=== PATIENT | male | born 1945 | race Caucasian/White ===

== ENCOUNTER → 2018-07-11 11:46 | Outpatient (CLI) | payer MEDICARE, SELFPAY | PROVIDERS: PCP Family Medicine; Visit Provider Family Medicine | DX: G47.30 Sleep apnea, unspecified (principal); I10 Essential (primary) hypertension; R06.83 Snoring | CPT/HCPCS: G0399 ==

== ENCOUNTER → 2018-07-22 10:45 | Outpatient (POV) | payer MEDICARE, SELFPAY | PROVIDERS: Visit Provider Dermatology | DX: Z00.00 Encounter for general adult medical examination without abnormal findings (principal) ==

== ENCOUNTER → 2020-01-29 08:22 | Outpatient (CLI) | payer MEDICARE, SELFPAY ==
[2020-01-29 14:24] LABS: Coronavirus 19 IgG Antibody Negative (Negative); Coronavirus 19 IgM Antibody Negative (Negative)
== END ==
PROVIDERS: Visit Provider Internal Medicine Gastroenterology
DX: Z01.818 Encounter for other preprocedural examination (principal); Z12.11 Encounter for screening for malignant neoplasm of colon
CPT/HCPCS: 36415; 86328

== ENCOUNTER 2020-02-01 11:00 | Day surgery (SDC) | payer MEDICARE, SELFPAY ==
[2020-02-01] VITALS (7 sets, daily range): BP systolic 86–145; BP diastolic 56–90; PULSE 63–75; RESP 16–18; TEMP 36.2–36.8; O2SAT 94–98; BMI 28.8
--- NOTE | 2020-02-01 12:49 | P.PN_ITS ---
[facility] Anesthesia Checklist - Structural Data Admitted From: Home Planned Operative Procedure/s: colonoscopy Consent for Planned Operative Procedure(s) Verified: Yes - Airway Assessment C-Spine Mobility Assessed: Yes TMJ Mobility Assessed: Yes Dentition: Good Dentition - Neurological Assessment Level of Consciousness: Awake, Alert, Appropriate - Anesthesia Plan Anesthesia Risk discussed: Yes Anesthesia Plan: Verified ASA Class: II Anesthesia Type: MAC [facility] History I have reviewed the patient's past medical history: Yes Medical History: Reports:: Hyperlipidemia, Hypertension Denies:: Aneurysm, Arrhythmia, Asthma, Atherosclerotic Heart Disease, Atrial Fibrillation, Cancer, Chronic Obstructive Pulmonary Disease (COPD), Cerebrovascular Accident, Diabetes Mellitus Type 1, Diabetes Mellitus Type 2, Gastroesophageal Reflux Disease(GERD), Internal Pacemaker, Kidney Stones, MRSA, Myocardial Infarction, Osteoporosis, Renal Disease, Renal Insufficiency, Seizures *Have you ever received a pneumonia vaccine?: Yes *Have you received a flu vaccine this season?: Yes Other Medical History: Reports: Arthritis, Cataracts (surgically removed ). Denies: Glaucoma, Hypothyroidism, Osteoporosis, Thyroid Disease Anesthesia experience/problems:: none Laterality Cases: Bilateral: Cataract Other Surgeries: Yes: Colonoscopy. No: Pacemaker Amputation: No Fractures: Yes - *Social History Smoking Status: Never smoker Tobacco Type: cigarettes #Yrs smoked (if former smoker): 24 Alcohol Intake: never Alcohol Intake Frequency:: holidays/special occasions only Substance Use Type: denies use *Occupational Status:: retired Housing: apartment Household Members: spouse *Travel in the last 8 weeks: None Family Hx:: Unable to obtain
--- NOTE | 2020-02-01 13:14 | P.PCN_ITS ---
[facility] Procedure Note Procedure Note:: Colonoscopy Procedure Report: Colonoscopy with cold snare polypectomy Endoscopist: Max Chavez II, MD Referring physician: Serafin Ayers MD Date of Procedure: February 01, 2020 Equipment: Olympus 180 variable stiffness pediatric colonoscope Sedation: MAC sedation Indication: Mr. Portillo is a 74-year-old gentleman who is here for follow-up screening/surveillance colonoscopy. His last colonoscopy was 5 to 7 years ago (Dr. Bert Franklin). This is his third colonoscopy and he does state that he had polyps on his first colonoscopy years ago. He reports no abdominal pain, weight loss, change in his bowel habits or rectal bleeding. He reports no family history of colon cancer. He does state that he often has to return to the bathroom 1 to 2 hours after a bowel movement with some fecal smearing and excessive wiping. Procedure: Prior to the procedure, a history and physical exam was performed, and patient's medications and allergies were reviewed. The risks, benefits and alternatives of the sedation and procedure were discussed with the patient. All questions were answered and informed consent was obtained. The patient was brought to the procedure room. Patient identification and proposed procedure were verified by the physician and the nurse. The patient was placed in a left lateral decubitus position and the scope was passed under direct vision. Throughout the procedure, the patient's blood pressure, pulse, and oxygen saturations were monitored continuously. The colonoscopy was accomplished without difficulty. The patient tolerated the procedure well. Findings: On digital rectal examination there was normal rectal tone. There were no external hemorrhoids. The prostate was 2+, smooth, soft, symmetric without nodules. The colonoscope was introduced through the anal canal to the rectum and advanced to the cecum. The ileocecal valve and appendiceal orifice were identified. The scope was advanced a short distance into the ileum which appeared grossly normal. The scope was then withdrawn into the colon. The cecum was normal. There 3 colon polyps (ascending polyp x1 (5 mm) and ascending colon polyps x2 (4 and 7 mm)) which were removed via cold snare polypectomy. There were scattered diverticuli throughout the descending and sigmoid colon (LEFT colon). The rectum itself was normal. Upon retroflexion within the rectum there were grade 1-2 internal hemorrhoids. The preparation was excellent throughout with Kingfisher Preparation Score of 9. The cecal time was 12 minutes. Impression: 1. Diminutive colonic polyps x3 2. Left-sided diverticulosis 3. Grade 1-2 internal hemorrhoids Plan: I will follow up the polyp pathology and recommend repeat colonoscopy again in 5 years based upon the polyp histology. I would encourage good bulk fiber supplementation on a long-term daily maintenance basis.
== END 2020-02-01 14:10 | disposition home or self-care (01) ==
LOC: OUTP 11:03
PROVIDERS: PCP Family Medicine; Visit Provider Internal Medicine Gastroenterology
PROC: 0DJD8ZZ Inspection of Lower Intestinal Tract, Via Natural or Artificial Opening Endoscopic (ICD-10-PCS; CPT 45378; principal; 2020-02-01 12:00)
DX: Z12.11 Encounter for screening for malignant neoplasm of colon (principal); Z86.010 Personal history of colon polyps; K63.5 Polyp of colon; K57.30 Diverticulosis of large intestine without perforation or abscess without bleeding; K64.0 First degree hemorrhoids; I10 Essential (primary) hypertension; E78.5 Hyperlipidemia, unspecified; M19.90 Unspecified osteoarthritis, unspecified site; G47.33 Obstructive sleep apnea (adult) (pediatric); N28.9 Disorder of kidney and ureter, unspecified; Z79.82 Long term (current) use of aspirin; Z79.899 Other long term (current) drug therapy
CPT/HCPCS: 45385; 88305

== ENCOUNTER → 2021-04-06 09:59 | Outpatient (POV) | payer MEDICARE, SELFPAY | PROVIDERS: Visit Provider Audiologist | DX: Z00.00 Encounter for general adult medical examination without abnormal findings (principal) ==

== ENCOUNTER → 2021-07-13 10:08 | Outpatient (CLI) | payer MEDICARE, SELFPAY | PROVIDERS: PCP Family Medicine; Visit Provider Nurse Practitioner | DX: Z20.822 Contact with and (suspected) exposure to COVID-19 (principal) | CPT/HCPCS: C9803; U0003; U0005 ==

== ENCOUNTER → 2021-07-14 13:17 | Outpatient (CLI) | payer MEDICARE, SELFPAY ==
[2021-07-14 14:26] LABS: Chloride 95 mmol/L (98-107); Potassium 4.5 mmoL/L (3.5-5.1); Sodium 130 mmol/L (136-145)
[2021-07-14 14:28] LABS: Basophils % 0.3 % (0.1-2.0); Eosinophils % 0.2 % (0.1-12.0); Hemoglobin 12.8 g/dL (14.1-18.0); Lymphocytes % 8.4 % (10-50); Mean Corpuscular HGB Conc 32.9 g/dL (31.8-35.4); Mean Corpuscular Hemoglobin 31.3 pg (27.0-31.2); Mean Corpuscular Volume 95.2 fl (80-94); Mean Platelet Volume 8.3 fl (7.4-10.4); Monocytes # 0.6 K/mm3 (0.1-1.0); Monocytes % 5.5 % (1.7-9.3); Neutrophils % 85.6 % (37.0-80.0); Platelet Count 128 K/mm3 (142-424); Red Cell Distribution Width 14.5 % (11.5-17.5); White Blood Count 11.7 K/mm3 (4.8-10.8)
[2021-07-14 14:29] LABS: Alanine Aminotransferase 34 U/L (12-78); Albumin Level 3.8 g/dl (3.5-5.0); Albumin/Globulin Ratio 1.5 (1.1-1.8); Alkaline Phosphatase 60 U/L (38-126); Anion Gap 12.5 mEq/L (5-15); Aspartate Amino Transferase 41 U/L (17-59); Bilirubin,Total 0.8 mg/dl (0.2-1.3); Blood Urea Nitrogen 16 mg/dl (9-20); Calcium 8.6 mg/dl (8.4-10.2); Carbon Dioxide 27 mmol/L (22.0-30.0); Estimated Glomerular Filt Rate 65 ml/min (>60); GFR (African American) 79 ML/MIN (>60); Globulin 2.6 g/dL (1.3-3.2); Glucose 123 mg/dl (74-100); Total Protein,Serum 6.4 g/dl (6.3-8.2)
[2021-07-14 14:31] LABS: MANUAL DIFFERENTIAL MANUAL DIFFERENTIAL (MANUAL DIFF)
[2021-07-14 15:50] LABS: Lymphocytes % 9 % (10-50); Monocytes % 5 % (2-9); Neutrophils % 81 % (42-76); RBC Morphology Normal; Total Cells Counted 100
[2021-07-14 15:51] LABS: Platelet Estimate Slight Decrease
== END ==
PROVIDERS: Visit Provider Nurse Practitioner Family
DX: R50.9 Fever, unspecified (principal); R34 Anuria and oliguria
CPT/HCPCS: 36415; 80053; 85007; 85025

== ENCOUNTER 2021-07-15 11:06 | Emergency (ER) | payer MEDICARE, SELFPAY ==
[2021-07-15] VITALS (8 sets, daily range): BP systolic 100–113; BP diastolic 49–74; PULSE 62–120; RESP 15–22; TEMP 36.6–37.4; O2SAT 95–98; BMI 26.9
--- NOTE | 2021-07-15 11:11 | HMH.EDGENADL ---
ED Disposition Clinical Impression: Nausea Vomiting Qualifiers: Migraine intractability: nonintractable Disposition: Home, Self-Care Condition on Discharge: Good Additional Instructions: Please just continue your current antibiotic name ciprofloxacin. You have been prescribed an alternate antibiotic for your potential urinary tract infection. Please make sure to see your primary care physician regarding the blood seen in your urine for further work-up to rule out a potentially more serious problem, such as malignancy. You have also been prescribed Zofran which she may use as needed for nausea and vomiting. If your condition worsens or any other concerns arise, please return to the emergency department. Referrals: Serafin Ayers MD [Primary Care Provider] - - Critical Care Critical Care Time: No Attestation: On , the high probability of a clinically significant, sudden or life threatening deterioration of the following system(s) required my full and direct attention, intervention and personal management. The time I documented below is in addition to time spent performing reported procedures but includes the following listed in this critical care notation. Medical Decision Making - Medical Records Medical records reviewed: Yes: I reviewed the patient's medical records. - Hilario Inquiry Pt receiving controlled substance: No Vital Signs: 07/15/21 11:07 07/15/21 12:00 07/15/21 12:30 Temperature 99.4 F Temperature Source Oral Pulse Rate 62 89 Pulse Rate [Right Radial] 120 H Respiratory Rate 22 16 15 Blood Pressure 100/53 L 100/50 L Blood Pressure [Right Arm] 111/69 Blood Pressure Mean 65 64 Blood Pressure Mean [Right Arm] 83 Blood Pressure Source [Right Arm] Automatic Cuff Blood Pressure Position [Right Arm] Sitting 02 Sat by Pulse Oximetry 97 96 95 Oxygen Delivery Method Room Air 07/15/21 13:00 07/15/21 13:30 07/15/21 14:00 Temperature Temperature Source Pulse Rate 84 81 88 Pulse Rate [Right Radial] Respiratory Rate 16 17 16 Blood Pressure 105/49 L 101/50 L 110/53 L Blood Pressure [Right Arm] Blood Pressure Mean 66 62 67 Blood Pressure Mean [Right Arm] Blood Pressure Source [Right Arm] Blood Pressure Position [Right Arm] 02 Sat by Pulse Oximetry 95 96 95 Oxygen Delivery Method 07/15/21 14:30 Temperature Temperature Source Pulse Rate 78 Pulse Rate [Right Radial] Respiratory Rate 15 Blood Pressure 103/55 L Blood Pressure [Right Arm] Blood Pressure Mean 69 Blood Pressure Mean [Right Arm] Blood Pressure Source [Right Arm] Blood Pressure Position [Right Arm] 02 Sat by Pulse Oximetry 96 Oxygen Delivery Method - Lab Data Lab Results 07/15/21 11:41: WBC 3.3 L D, RBC 3.98 L, Hgb 12.3 L, Hct 38.0 L, MCV 95.5 H, MCH 30.9, MCHC 32.4, RDW 14.2, Plt Count 105 L, MPV 9.1, Neut % (Auto) 91.0 H, Lymph % (Auto) 4.8 L, Andrews % (Auto) 1.6 L, Eos % (Auto) 1.3, Baso % (Auto) 1.2, Neut # (Auto) 3.0, Lymph # (Auto) 0.2 L, Andrews # (Auto) 0.1, Eos # (Auto) 0.0, Baso # (Auto) 0.0, Total Counted 100, Neutrophils % (Manual) 76, Lymphocytes % (Manual) 16, Monocytes % (Manual) 8, Platelet Estimate Normal, RBC Morphology Normal 07/15/21 11:41: Sodium 131 L, Potassium 3.7, Chloride 98, Carbon Dioxide 25, Anion Gap 11.7, BUN 14, Creatinine 1.10, Estimated Creat Clear 72, Estimated GFR 65, Est GFR ( Amer) 79, Glucose 162 H D, Calcium 8.7, Total Bilirubin 0.6, AST 38, ALT 36, Alkaline Phosphatase 109, Troponin I < 0.01, Total Protein 6.7, Albumin 3.8, Globulin 2.9, Albumin/Globulin Ratio 1.3 07/15/21 11:57: Urine Color Yellow, Urine Appearance Clear, Urine pH 6.5, Ur Specific Lyons 1.015, Urine Protein 2+, Urine Glucose (UA) Negative, Urine Ketones Negative, Urine Blood 3+, Urine Nitrate Negative, Urine Bilirubin Negative, Urine Urobilinogen 0.2, Ur Leukocyte Esterase Negative, Urine RBC 20-50, Urine WBC 3-5, Ur Squamous Epith Cells 3-5, Urine Bacteria None 07/15/21 11:
[2021-07-15 11:50] LABS: Basophils % 1.2 % (0.1-2.0); Eosinophils % 1.3 % (0.1-12.0); Hemoglobin 12.3 g/dL (14.1-18.0); Lymphocytes # 0.2 K/mm3 (0.7-4.5); Lymphocytes % 4.8 % (10-50); Mean Corpuscular HGB Conc 32.4 g/dL (31.8-35.4); Mean Corpuscular Hemoglobin 30.9 pg (27.0-31.2); Mean Corpuscular Volume 95.5 fl (80-94); Mean Platelet Volume 9.1 fl (7.4-10.4); Monocytes # 0.1 K/mm3 (0.1-1.0); Monocytes % 1.6 % (1.7-9.3); Platelet Count 105 K/mm3 (142-424); Red Blood Count 3.98 M/mm3 (4.60-6.20); Red Cell Distribution Width 14.2 % (11.5-17.5); White Blood Count 3.3 K/mm3 (4.8-10.8)
[2021-07-15 11:52] LABS: MANUAL DIFFERENTIAL MANUAL DIFFERENTIAL (MANUAL DIFF)
[2021-07-15 11:57] LABS: Chloride 98 mmol/L (98-107)
[2021-07-15 11:58] LABS: Sodium 131 mmol/L (136-145)
[2021-07-15 11:59] LABS: Potassium 3.7 mmoL/L (3.5-5.1)
[2021-07-15 12:01] LABS: Alanine Aminotransferase 36 U/L (12-78); Albumin Level 3.8 g/dl (3.5-5.0); Albumin/Globulin Ratio 1.3 (1.1-1.8); Alkaline Phosphatase 109 U/L (38-126); Anion Gap 11.7 mEq/L (5-15); Aspartate Amino Transferase 38 U/L (17-59); Bilirubin,Total 0.6 mg/dl (0.2-1.3); Blood Urea Nitrogen 14 mg/dl (9-20); Calcium 8.7 mg/dl (8.4-10.2); Carbon Dioxide 25 mmol/L (22.0-30.0); Creatinine Clearance Estimated 72 mL/min (50-200); Estimated Glomerular Filt Rate 65 ml/min (>60); GFR (African American) 79 ML/MIN (>60); Globulin 2.9 g/dL (1.3-3.2); Glucose 162 mg/dl (74-100); Total Protein,Serum 6.7 g/dl (6.3-8.2)
--- NOTE | 2021-07-15 12:04 | ECG_ITS ---
APPROVED REPORT Exam: Resting ECG HR:100 bpm ECG Measurements Heart Rate 100 AXES RI 144 P 54 QRSd 96 QRS 0 QT 324 T 64 QTc 417 Conclusion Normal sinus rhythm Normal ECG Electronically signed by : Serafin Mancuso MD 07/16/2021 08:31:30
[2021-07-15 12:06] LABS: Coronavirus 19, PCR Not Detected (NotDetected); Influenza A, PCR Not Detected (NotDetected); Influenza B, PCR Not Detected (NotDetected); Microscopic, Urine URINE MICROSCOPIC (MICROSCOPIC)
[2021-07-15 12:07] LABS: Appearance,Urine CLEAR (Clear); Bilirubin,Urine Negative (Negative); Blood, Urine 3+ (Negative); Color,Urine YELLOW (Yellow); Glucose,Urine (UA) Negative (Negative); Ketones,Urine Negative (Negative); Leukocyte Esterase,Urine Negative (Negative); Nitrate,Urine Negative (Negative); PH,Urine 6.5 (5.0-8.5); Protein,Urine 2+ (Negative); Specific Gravity, Urine 1.015 (1.005-1.030); Urobilinogen,Urine 0.2 EU/dl (0.2)
[2021-07-15 12:14] LABS: Troponin I < 0.01 ng/ml (0.00-0.034)
[2021-07-15 12:18] LABS: RBC,Urine 20-50 #/hpf (0-3)
[2021-07-15 12:30] LABS: Lymphocytes % 16 % (10-50); Monocytes % 8 % (2-9); Neutrophils % 76 % (42-76); Platelet Estimate Normal; RBC Morphology Normal; Total Cells Counted 100
--- NOTE | 2021-07-15 13:01 | CT_ITS ---
PROCEDURE INFORMATION: Exam: CT Abdomen And Pelvis With Contrast Exam date and time: 07/15/2021 1:01 PM Age: 76 years old Clinical indication: Other: Flank pain; Additional info: Right flank pain/hematuria TECHNIQUE: Imaging protocol: Computed tomography of the abdomen and pelvis with contrast. Radiation optimization: All CT scans at this facility use at least one of these dose optimization techniques: automated exposure control; mA and/or kV adjustment per patient size (includes targeted exams where dose is matched to clinical indication); or iterative reconstruction. Contrast material: ISOVUE; Contrast volume: 75 ml; Contrast route: IV; COMPARISON: CR CXR2V XR chest 2V 11/14/2018 2:20 AM FINDINGS: Liver: No mass. 15 mm cyst. Gallbladder and bile ducts: Unremarkable. No ductal dilation. Pancreas: Normal. No ductal dilation. Spleen: Normal. No splenomegaly. Adrenal glands: Normal. No mass. Kidneys and ureters: Normal. No hydronephrosis. Stomach and bowel: No acute findings. No obstruction. No mucosal thickening. Underdistention of the stomach, gastric wall thickening cannot be excluded. Appendix: No evidence of appendicitis. Intraperitoneal space: Unremarkable. No free air. No significant fluid collection. Vasculature: No abdominal aortic aneurysm. Lymph nodes: No significant adenopathy. Urinary bladder: Unremarkable as visualized. Reproductive: Prostate enlargement. Bones/joints: No acute findings. Lumbar levoscoliosis and lower lumbar degenerative change. Soft tissues: Unremarkable. IMPRESSION: No acute findings.
--- NOTE | 2021-07-15 13:50 | PC.NURSE ---
Pt returned from CT at this time via w/c.
[2021-07-15 14:56] LABS: Troponin I 0.03 ng/ml (0.00-0.034)
[2021-09-18 13:54] LABS: POC Glucose,Bedside 426 (70-110)
== END 2021-07-15 15:17 | disposition home or self-care (01) ==
PROVIDERS: Emergency Provider Emergency Medicine; PCP Family Medicine
DX: N30.01 Acute cystitis with hematuria (principal); I10 Essential (primary) hypertension; E78.5 Hyperlipidemia, unspecified; E03.9 Hypothyroidism, unspecified; M81.0 Age-related osteoporosis without current pathological fracture; Z20.822 Contact with and (suspected) exposure to COVID-19
CPT/HCPCS: 36415; 74177; 80053; 81001; 82962; 84484; 85007; 85025; 87086; 93005; 96365; 96375; 99283; C9803; Q9967; U0003; U0005

== ENCOUNTER → 2022-02-02 15:08 | Outpatient (CLI) | payer MEDICARE, SELFPAY ==
[2022-02-04 08:11] LABS: PSA, Free 1.87 ng/mL; Prostate Specific Ag 6.6 ng/mL (0.0-4.0)
== END ==
PROVIDERS: PCP Family Medicine; Visit Provider Urology
DX: R97.20 Elevated prostate specific antigen [PSA] (principal)
CPT/HCPCS: 36415; 84153; 84154

== ENCOUNTER → 2022-08-23 16:08 | Outpatient (CLI) | payer MEDICARE, SELFPAY ==
--- NOTE | 2022-08-23 16:15 | XR_ITS ---
FINAL REPORT CLINICAL HISTORY: Chronic right hip pain COMPARISON: None FINDINGS: RIGHT HIP Two views of the right hip demonstrate no acute fracture or dislocation. There is mild degenerative change. The visualized bony structures are well aligned. There is postoperative change in the pelvis. No soft tissue abnormality is seen. IMPRESSION: Degenerative change with no acute bony abnormality. Reviewed, Interpreted and Dictated by Robby Morelos III, MD Transcribed by Mariah Yeh Authenticated and [facility]
== END ==
PROVIDERS: PCP Family Medicine; Visit Provider Family Medicine
DX: M25.551 Pain in right hip (principal)
CPT/HCPCS: 73502

== ENCOUNTER 2022-08-26 09:05 | Emergency (ER) | payer MEDICARE, SELFPAY ==
[2022-08-26 09:30] VITALS: BP 154/93; PULSE 83; RESP 20; TEMP 36.9; O2SAT 96; BMI 26.6
--- NOTE | 2022-08-26 10:15 | EXP.UTC ---
Discharge Plan Disposition Patient Disposition: Home, Self-Care Condition: Good Prescriptions Prescriptions: New gentamicin 0.3 % drops 2 drp ophthalmic (eye) Q4H 7 Days Qty: 5 0RF Rx Instructions: left eye No Action losartan 100 mg tablet 100 mg PO DAILY simvastatin 40 mg tablet 40 mg PO DAILY 90 Days Label Comments: tamsulosin 0.4 mg capsule,extended release 24hr 0.4 mg PO DAILY 90 Days Qty: 90 Label Comments: aspirin [Adult Low Dose Aspirin] 81 mg tablet,delayed release (DR/EC) 81 mg PO ONCE cetirizine 10 mg capsule 10 mg PO DAILY Referrals Follow up/Referrals: Serafin Ayers MD [Primary Care Provider] - See instructions Activity Restrictions/Add. Instructions Additional Instructions/Restrictions: Wash hands before and after applying drops to eyes Use drops as directed Follow up with Eye Doctor if no improvement or any worsening of symptoms Return if needed Clinical Impressions Clinical Impression: Conjunctivitis Instructions Patient Instructions: Conjunctivitis, DI for Conjunctivitis Discharge ED Provider: Carol Moctezuma [facility] General Stated complaint: left eye redness Mode of Arrival: Ambulatory Source of Information: Patient Limitations: No Limitations Time Seen by Provider: 08/26/22 10:15 Description of Symptoms (Recalled from Triage Doc. by RN): left pink eye HEENT Symptoms (Recalled from RN notes): Yes Resp Symptoms (Recalled from RN notes): No Skin Symptoms (Recalled from RN notes): No MS Symptoms (Recalled from RN notes): No Functional Status (Recalled from RN notes): n/a History of Present Illness Provider Complaint: Patient states that he was around his grandchild that had pink eye now he woke up with his left eye matted shut, red and draining so he came in to get something to help clear it up Related Data Home Medications Medication Instructions Recorded Confirmed aspirin 81 mg tablet,delayed 81 mg PO ONCE CAD 08/05/17 08/26/22 release (Adult Low Dose Aspirin) simvastatin 40 mg tablet 40 mg PO DAILY Cholesterol 90 days 08/05/17 08/26/22 tamsulosin 0.4 mg capsule 0.4 mg PO DAILY BPH 90 days ##90 08/05/17 08/26/22 cetirizine 10 mg capsule 10 mg PO DAILY Allergy symptoms 09/09/18 08/26/22 losartan 100 mg tablet 100 mg PO DAILY . 02/02/22 08/26/22 Previous Rx's Medication Instructions Recorded gentamicin 0.3 % eye drops 2 drp ophthalmic (eye) Q4H 7 days 08/26/22 #5 mL Allergies Allergy/AdvReac Type Severity Reaction Status Date / Time lisinopril Allergy Mild Verified 08/26/22 09:40 Worker's Comp Is this a Worker's Comp case?: No PFSH PFS Disclaimer: The information contained in this section may have been updated after the patient was seen, as this information can be updated by other users. Social History Smoking Status: Never smoker alcohol intake: never counseling provided: none substance use type: denies use current occupational status: retired Travel in the last 8 weeks: None household members: spouse housing: apartment current occupational exposures/hazards: No caffeine: No ROS Obtained: Yes All systems reviewed & no additional complaints except as documented and Yes Systems reviewed as appropriate & no additional complaints except as documented Constitutional Constitutional: Reports system reviewed and no additional complaints, except as documented and Reports as per HPI Eyes Eyes: Reports system reviewed and no additional complaints, except as documented, Reports as per HPI, Reports eye discharge and Reports irritation ENT Ears, Nose, Mouth, and Throat: Reports system reviewed and no additional complaints, except as documented and Reports as per HPI Cardiovascular Cardiovascular: Reports system reviewed and no additional complaints, except as documented and Reports as per HPI Respiratory Respiratory: Reports sy
[2022-08-26 10:47] VITALS: BP 154/93; PULSE 83; RESP 20; TEMP 36.9; O2SAT 96
== END 2022-08-26 10:40 | disposition home or self-care (01) ==
PROVIDERS: Emergency Provider Nurse Practitioner; PCP Family Medicine
DX: H10.9 Unspecified conjunctivitis (principal)
CPT/HCPCS: 99212; 99213; G0463

== ENCOUNTER 2024-01-07 11:00 | Outpatient (CLI) | payer MEDICARE, SELFPAY ==
--- NOTE | 2024-01-07 11:04 | XR_ITS ---
FINAL REPORT CLINICAL HISTORY: LOW BACK PAIN FINDINGS: There is a nonspecific, nonobstructive bowel gas pattern. No bowel dilatation is identified. There is no abnormal calcification. There is a moderate amount of retained stool throughout the colon. There is S shaped scoliosis in the lower thoracolumbar spine as well as moderate degenerative changes. There are postoperative changes in the lower pelvis. IMPRESSION: Degenerative changes as above. Reviewed, Interpreted and Dictated by Robby Morelos III, MD Transcribed by Jammie Jackson Authenticated and [facility]
== END 2024-01-07 23:59 | disposition home or self-care (01) ==
LOC: RAD 11:01
PROVIDERS: PCP Family Medicine; Visit Provider Family Medicine
DX: M54.50 Low back pain, unspecified (principal)
CPT/HCPCS: 74018

== ENCOUNTER 2024-07-29 08:58 | Outpatient (POV) | payer MEDICARE, SELFPAY ==
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
[2024-07-29 11:32] VITALS: BP 176/85; PULSE 86; RESP 18; O2SAT 97; BMI 26.8
== END 2024-07-29 23:59 | disposition home or self-care (01) ==
LOC: SC.PAIN 08:59
PROVIDERS: PCP Family Medicine; Visit Provider Nurse Practitioner Family
DX: M46.1 Sacroiliitis, not elsewhere classified (principal); M54.50 Low back pain, unspecified; M25.551 Pain in right hip; M25.552 Pain in left hip; Z73.89 Other problems related to life management difficulty
CPT/HCPCS: 99202; G0463

== ENCOUNTER 2024-08-11 09:48 | Day surgery (SDC) | payer MEDICARE, SELFPAY ==
[2024-08-11 10:01] VITALS: BP 159/86; PULSE 85; RESP 16; TEMP 36.4; O2SAT 96; BMI 26.8
[2024-08-11 10:22] VITALS: BP 155/85; PULSE 83; RESP 16; O2SAT 95
--- NOTE | 2024-08-11 10:35 | P.PCN_ITS ---
Procedure Date: 08/11/24 Time: 09:45 Anesthesiologist:: Servando Arita CRNA Complications:: None Pre-procedure Diagnosis:: Bilateral sacroiliitis Post-procedure Diagnosis:: Same Indications for Procedure:: Patient is a pleasant 79-year-old male who comes our clinic today for bilateral sacroiliac joint injection of cortisone and local anesthetic. Patient describes low lumbar back pain off midline bilaterally. Bilateral posterior hip pain. Difficulty transitioning from sitting to standing. Difficulty with ambulation due to low lumbar back pain. He rates his pain 7/10. Procedure Details:: Procedure: Bilateral sacroiliac joint injections under fluoroscopy Informed consent was obtained and the risks and benefits of the procedure were explained to the patient.~ The patient was taken to the procedure room and noninvasive monitors were placed including a noninvasive blood pressure cuff and pulse oximeter.~ The patient was placed prone on the procedure table. Both hips were cleansed using Betadine as a cleansing solution. C-arm fluoroscopy was used to view the right sacroiliac joint.~ The skin and subcutaneous tissues were anesthetized using lidocaine 1.5% and a 25-gauge needle.~ After this, a 22-gauge spinal needle was inserted under fluoroscopic guidance into the inferior aspect of the right sacroiliac joint.~ Omnipaque dye was injected and good spread was seen throughout the joint.~ After this, approximately 5 mL of bupivacaine, 0.25% and Depo-Medrol, 40 mg was incrementally injected into the right sacroiliac joint. We then moved to the left sacroiliac joint.~ The skin and subcutaneous tissues were anesthetized using lidocaine 1.5% and a 25-gauge needle.~ After this, a 22- gauge spinal needle was inserted under fluoroscopic guidance into the inferior aspect of the left sacroiliac joint.~ Omnipaque dye was injected and good spread was seen throughout the joint. After this, approximately 5 mL of bupivacaine, 0.25% and Depo-Medrol, 40 mg was incrementally injected into the left sacroiliac joint.~ The patient tolerated the procedure well with no complications. The patient was observed in the Pain Clinic and then was discharged home neurologically intact. Plan and Disposition:: Patient was discharged without incident.
[2024-08-11] MEDS: BUPIVACAINE 0.25% 10ML INJ 25 MG IJ (10:52)
[2024-08-11] MEDS: LIDOCAINE 1% 5ML PF VIAL 5 ML (10:52)
[2024-08-11] MEDS: methylPREDNISolone ACETATE 80MG/ML VIAL 80 MG (10:52)
[2024-08-11 11:05] VITALS: BP 167/97; PULSE 87; RESP 18; O2SAT 97
[2024-08-11 11:07] VITALS: BP 167/97; PULSE 87; RESP 18; O2SAT 97
== END 2024-08-11 10:22 | disposition home or self-care (01) ==
LOC: SC.PAINP 09:49
PROVIDERS: PCP Family Medicine; Visit Provider Nurse Anesthetist, Certified Registered
DX: M46.1 Sacroiliitis, not elsewhere classified (principal)
CPT/HCPCS: 27096; G0260; J1010

== ENCOUNTER 2024-08-26 14:16 | Outpatient (POV) | payer MEDICARE, SELFPAY ==
--- NOTE | 2024-08-26 14:49 | EXP.PAIN.SOA ---
[facility] Disclaimer: The information contained in this section may have been updated after the patient was seen, as this information can be updated by other users. Medical History BPH (benign prostatic hyperplasia) JUSTINE (obstructive sleep apnea) HTN (hypertension) HLD (hyperlipidemia) Surgical History Surgical history unknown Family History Other Unknown family medical history Social History Smoking Status: Never smoker alcohol intake: never counseling provided: none substance use type: denies use current occupational status: retired Travel in the last 8 weeks: None household members: spouse housing: apartment current occupational exposures/hazards: No caffeine: No PM Subjective & Objective Subjective Subjective:: Patient is a pleasant 79-year-old male who presents today for follow-up of bilateral SI injections on 08/11/2024. Today he rates his pain a 3 out of 10. He denies any new trauma or injury. He does state the day of the injection he did have at least 80% improvement and felt overall like he was back to his normal self. He does state today that he would rate more about 40% ongoing relief. He does state that the pain is definitely not as severe and not as constant. He states he has been able to go and walk on the golf course as well as get back into playing pickle ball with no issues. He does state that he notices more issues when he is standing for prolonged.'s versus being active. He states that yesterday he did have more pain across to his low back however today he is completely back to normal. He states that he did get the compounded cream and that it does help some. His Hilario has been reviewed and is appropriate. Review of Systems: General: No recent weight changes, no fever, no sleep disturbances Respiratory: No cough, no shortness of air, no recurring pulmonary infections Cardiovascular/peripheral vascular: No chest pain, no palpitations, no edema, no shortness of breath Gastrointestinal: No new onset incontinence, normal bowel movements reported Genitourinary: No new onset incontinence Musculoskeletal: Low back pain Psychiatric: [Normal mood/affect] Neurological: [Denies weakness in extremities], [denies balance issues] Pain at rest (0-10 scale): 3 Objective Objective:: Physical Exam: General: Alert and oriented x3, no acute distress, pleasant and cooperative Lungs: Respirations even and unlabored, symmetrical chest expansion Eyes: PERRL Musculoskeletal: Flexion and extension of lumbar [spine] within normal limits Neurological: Speech clear, no gross sensory deficit Has patient had previous pain injection?: Yes Percent improvement in pain since last injection: 80% Conservative treatment options previously tried: Home exercise plan Length of treatment: Longer than 12 weeks Meds Home Medications and Allergies Home Medications ?Medication ?Instructions ?Recorded ?Confirmed ?Type aspirin 81 mg tablet,delayed 81 mg PO ONCE CAD 08/05/17 08/11/24 History release (Adult Low Dose Aspirin) simvastatin 40 mg tablet 40 mg PO DAILY Cholesterol 90 days 08/05/17 08/11/24 History tamsulosin 0.4 mg capsule 0.4 mg PO DAILY BPH 90 days ##90 08/05/17 08/11/24 History cetirizine 10 mg capsule 10 mg PO DAILY Allergy symptoms 09/09/18 08/11/24 History losartan 100 mg tablet 100 mg PO DAILY . 02/02/22 08/11/24 History gentamicin 0.3 % eye drops 2 drp ophthalmic (eye) Q4H 7 days 08/26/22 08/11/24 Rx #5 mL New Prescriptions to Start Prescriptions: Allergies Allergy/AdvReac Type Severity Reaction Status Date / Time lisinopril Allergy Mild Cough Verified 08/11/24 10:02 Assessment and Plan *Assessment and plan (1) Bilateral sacroiliitis: Status: Acute Category: Medical Code(s): M46.1 - Sacroiliitis, not elsewhere classified (2) Low back pain: Status: Acute Category: Medical Code(s): M54.50 - Low back pain, unspecified Plan Patient has had significant improvement and does not require any additional injection therapy at this time. Patient will return to clinic in 6 weeks. Patient has been instructed to contact the clinic with any concerns before the next appointment. Dr. Arenas has reviewed this note and agrees with this plan of care. This note was dictated using voice recognition software and make contain errors or omissions. All injections are used with Lidocaine, Bupivacaine and Depo Medrol. Occasionally urine drug screen is needed to verify patient's compliance with our office pain contract. This is ordered based off specific treatments related to chronic pain with the potential to abuse certain medications.
[2024-08-26 15:07] VITALS: BP 127/69; PULSE 73; RESP 16; O2SAT 96; BMI 26.8
== END 2024-08-26 23:59 | disposition home or self-care (01) ==
LOC: SC.PAIN 14:19
PROVIDERS: PCP Family Medicine; Visit Provider Nurse Practitioner Family
DX: M46.1 Sacroiliitis, not elsewhere classified (principal); M54.50 Low back pain, unspecified
CPT/HCPCS: 99212; G0463

== ENCOUNTER 2024-10-08 13:27 | Outpatient (POV) | payer MEDICARE, SELFPAY ==
--- NOTE | 2024-10-08 14:00 | EXP.PAIN.SOA ---
[facility] Disclaimer: The information contained in this section may have been updated after the patient was seen, as this information can be updated by other users. Medical History BPH (benign prostatic hyperplasia) JUSTINE (obstructive sleep apnea) HTN (hypertension) HLD (hyperlipidemia) Surgical History Surgical history unknown Family History Other Unknown family medical history Social History Smoking Status: Never smoker alcohol intake: never counseling provided: none substance use type: denies use current occupational status: other Travel in the last 8 weeks: None household members: spouse housing: apartment current occupational exposures/hazards: No caffeine: No PM Subjective & Objective Subjective Subjective:: Patient is a pleasant 79-year-old male who presents today for follow-up. Today he rates his pain a 0 out of 10 while he is seated and a 5 out of 10 when he is up walking or moving. He does note this pain is interfering with his ability perform activities of daily living such as cooking and cleaning. He states that when the pain is increased it is much more bothersome. Patient has continued conservative treatment. Patient denies any new falls or injuries. Patient denies any radiating symptoms into his legs. Patient states it does just seem like it stays all across his low back. Patient did previously have bilateral SI injections on August 11 that did provide 80% improvement and have continued to help. Patient is very active and is still doing golf and pickleball on a regular basis. He is prescribed compounded cream. His Hilario has been reviewed and is appropriate. Review of Systems: General: No recent weight changes, no fever, no sleep disturbances Respiratory: No cough, no shortness of air, no recurring pulmonary infections Cardiovascular/peripheral vascular: No chest pain, no palpitations, no edema, no shortness of breath Gastrointestinal: No new onset incontinence, normal bowel movements reported Genitourinary: No new onset incontinence Musculoskeletal: Low back pain Psychiatric: [Normal mood/affect] Neurological: [Denies weakness in extremities], [denies balance issues] Pain at rest (0-10 scale): 5 Objective Objective:: Physical Exam: General: Alert and oriented x3, no acute distress, pleasant and cooperative Lungs: Respirations even and unlabored, symmetrical chest expansion Eyes: PERRL Musculoskeletal: Flexion and extension of lumbar [spine] somewhat guarded secondary to pain, [antalgic gait noted] positive Kemps test Neurological: Speech clear, no gross sensory deficit Has patient had previous pain injection?: No Conservative treatment options previously tried: Home exercise plan Length of treatment: Longer than 12 weeks Meds Home Medications and Allergies Home Medications ?Medication ?Instructions ?Recorded ?Confirmed ?Type aspirin 81 mg tablet,delayed 81 mg PO ONCE CAD 08/05/17 09/04/24 History release (Adult Low Dose Aspirin) simvastatin 40 mg tablet 40 mg PO DAILY Cholesterol 90 days 08/05/17 09/04/24 History tamsulosin 0.4 mg capsule 0.4 mg PO DAILY BPH 90 days ##90 08/05/17 09/04/24 History cetirizine 10 mg capsule 10 mg PO DAILY Allergy symptoms 09/09/18 09/04/24 History losartan 100 mg tablet 100 mg PO DAILY . 02/02/22 09/04/24 History gentamicin 0.3 % eye drops 2 drp ophthalmic (eye) Q4H 7 days 08/26/22 09/04/24 Rx #5 mL guaifenesin 400 mg tablet 400 mg PO QID PRN congestion #20 09/04/24 09/04/24 Rx tabs New Prescriptions to Start Prescriptions: Allergies Allergy/AdvReac Type Severity Reaction Status Date / Time lisinopril Allergy Mild Cough Verified 09/04/24 11:48 Assessment and Plan *Assessment and plan (1) Low back pain: Status: Acute Category: Medical Code(s): M54.50 - Low back pain, unspecified (2) Lumbar facet arthropathy: Status: Acute Category: Medical Code(s): M47.816 - Spondylosis without myelopathy or radiculopathy, lumbar region Plan Patient is experiencing significant pain in his low back that is worse with walking and denies any radiating symptoms into his legs. Patient did have limited range of motion of his lumbar spine with a positive Kemps test during today's visit. I did discuss with the patient that I do believe he would benefit from a lumbar medial branch block. Risk and benefits were discussed with the patient and he would like to proceed forward with this plan of care. Patient has tried and failed conservative therapy including oral medications, heat and ice, topicals, at home stretching exercise for longer than 12 weeks. Patient has been experiencing chronic low back pain for years. Patient was counseled that if he does get significant relief with his first lumbar medial branch block that we will plan on repeating it with the plan to progress forward to a lumbar RFA at a later date. Patient agrees with this plan of care. Patient will be scheduled for his first diagnostic lumbar medial branch block bilaterally L4-L5 and L5-S1 under fluoroscopy. Patient has been instructed to contact the clinic with any concerns before the next appointment. Dr. Arenas has reviewed this note and agrees with this plan of care. This note was dictated using voice recognition software and make contain errors or omissions. All injections are used with Lidocaine, Bupivacaine and Depo Medrol. Occasionally urine drug screen is needed to verify patient's compliance with our office pain contract. This is ordered based off specific treatments related to chronic pain with the potential to abuse certain medications.
[2024-10-08 14:01] VITALS: BP 140/67; PULSE 70; RESP 16; O2SAT 98; BMI 26.8
--- OUTSIDE RECORDS SUMMARY | 2024-10-08 23:28 | XMS_ITS | Data Portability ---
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 Plan of Treatment Reminders Order Date Submit Date Provider Last Modified By Organization Details Last Modified Time Details Appointments RECHECK 2024 11:30A M CARL HORNER MD Not available Not available Not available Lab urinalysi s panel, auto [email or web address] [facility], [address] [place] [address], [address], [place], [address], 08/21/2024 12:58:46 Referral None recorded. Procedures None recorded. Surgeries None recorded. Imaging None recorded. Medication Orders clotrimaz ole-betam ethasone 1 %-0.05 % topical cream 2024 025 [facility], [address], [place], [place], [id number], 08/21/2024 14:45:34 Patient TargetsNo targets recorded. Patient InstructionsNo instructions recorded. Reason for Referral None Reported. Results Created Date Observation Date Name Description Value Unit Range Abnormal Flag Note LastModifiedBy Organization Detail LastModifiedTime 08/21/19 25 08/21/2024 urina lysis panel , auto Unknown Analyte Clean Catch Not Available [facility] [address], [place], [address], 08/21/2024 11:52:51 08/21/19 25 08/21/2024 urina lysis panel , auto Unknown Analyte Yellow Not Available [facility] [address], [place], [address], 08/21/2024 11:52:51 08/21/19 25 08/21/2024 urina lysis panel , auto Unknown Analyte Clear Not Available [facility] [address], [place], [address], 08/21/2024 11:52:51 08/21/19 25 08/21/2024 urina lysis panel , auto Unknown Analyte 1.005 Not Available [facility] [address], [place], [address], 08/21/2024 11:52:51 08/21/19 25 08/21/2024 urina lysis panel , auto Unknown Analyte 1.003 - 1.030 Not Available [facility] [address], [place], [address], 08/21/2024 11:52:51 08/21/19 25 08/21/2024 urina lysis panel , auto Unknown Analyte 6.5 Not Available [facility] [address], [place], [address], 08/21/2024 11:52:51 08/21/19 25 08/21/2024 urina lysis panel , auto Unknown Analyte 5.0 - 8.0 Not Available [facility] [address], [place], [address], 08/21/2024 11:52:51 08/21/19 25 08/21/2024 urina lysis panel , auto Unknown Analyte Negati ve Not Available [facility] [address], [place], [address], 08/21/2024 11:52:51 08/21/19 25 08/21/2024 urina lysis panel , auto Unknown Analyte Negati ve Not Available [facility] [address], [place], [address], 08/21/2024 11:52:51 08/21/19 25 08/21/2024 urina lysis panel , auto Unknown Analyte Negati ve Not Available [facility] [address], [place], [address], 08/21/2024 11:52:51 08/21/19 25 08/21/2024 urina lysis panel , auto Unknown Analyte Negati ve Not Available [facility] [address], [place], [address], 08/21/2024 11:52:51 08/21/19 25 08/21/2024 urina lysis panel , auto Unknown Analyte Negati ve Not Available [facility] [address], [place], [address], 08/21/2024 11:52:51 08/21/19 25 08/21/2024 urina lysis panel , auto Unknown Analyte Negati ve Not Available [facility] [address], [place], [address], 08/21/2024 11:52:51 08/21/19 25 08/21/2024 urina lysis panel , auto Unknown Analyte Normal Not Available [facility] [address], [place], [address], 08/21/2024 11:52:51 08/21/19 25 08/21/2024 urina lysis panel , auto Unknown Analyte Normal Not Available [facility] [address], [place], [address], 08/21/2024 11:52:51 08/21/19 25 08/21/2024 urina lysis panel , auto Unknown Analyte Negati ve Not Available [facility] [address], [place], [address], 08/21/2024 11:52:51 08/21/19 25 08/21/2024 urina lysis panel , auto Unknown Analyte Negati ve Not Available [facility] [address], [place], [address], 08/21/2024 11:52:51 08/21/19 25 08/21/2024 urina lysis panel , auto Unknown Analyte Normal Not Available [facility] [address], [place], [address], 08/21/2024 11:52:51 08/21/19 25 08/21/2024 urina lysis panel , auto Unknown Analyte Normal Not Available [facility] [address], [place], [address], 08/21/2024 11:52:51 08/21/19 25 08/21/2024 urina lysis panel , auto Unknown Analyte Negati ve Not Available [facility] [address] [place] [address] [address], [place], [address], 08/21/2024 11:52:51 08/21/19 25 08/21/2024 urina lysis panel , auto Unknown Analyte Negati ve Not Available [facility] [address] [place] [address] [address], [place], [address], 08/21/2024 11:52:51 08/21/1908/21/2024 urina lysis panel , auto Unknown Analyte 50 Skip/uL Not Available [facility] [address], [place], [address], 08/21/2024 11:52:51 08/21/19 25 08/21/2024 urina lysis panel , auto Unknown Analyte Negati ve Not Available [facility] [address], [place], [address], 08/21/2024 11:52:51 Result Notes None recorded. Medical Equipment None Reported. Allergies No known drug allergies Medications Name Sig Start Date Stop Date Status Note LastModified by Organization Details LastModified Time Aspir-Low 81 mg tablet,del ayed release Daily active Duration: 10 days;Freq uency: daily;Med ication Descripti on: aspirin; Dosage:1; Route:ora l; refills:0 ; Quantity: 30 tablet Not Available Not Available Not Available Lipitor 20 mg tablet Every night at bedtime active Frequency : qhs;Medic ation Descripti on: atorvasta tin; Dosage:1- 2; Route:ora l; refills:0 ; Quantity: 30 tablet Not Available Not Available Not Available clotrimazo le-betamet hasone 1 %-0.05 % topical cream APPLY TO THE AFFECTED AND SURROUNDI NG AREAS OF SKIN BY TOPICAL ROUTE 2 TIMES PER DAY IN THE MORNING AND EVENING FOR 2 WEEKS 2024 active Not Available Not Available Not Avai lable lisinopril 10 mg tablet Bedtime active Duration: 30 days;Freq uency: hs;Medica tion Descripti on: lisinopri l; Dosage:1; Route:ora l; refills:5 ; Quantity: 30 tablet Not Available Not Available Not Available Extendryl As needed active Frequency : prn;Medic ation Descripti on: dextromet horphan hydrobrom iván/chlor phenirami ne maleate/m ethscopol amine nitr; Dosage:1/ 2; Route:ora l; refills:0 Not Available Not Available Not Available Vitals Date Recorded Body height Body mass index (BMI) Body weight Provider Name and Address Organization Details Last Updated DateTime 08/21/2024 177.8 cm 26.8 kg/m2 24073.77 g Yamilex Schulte [facility] 08/21/2024 11:57:49 Social History Question Answer Notes LastModified by Organizat ion Details LastModified Time Tobacco Smoking Status Former Smoker Not Available [employer] 08/21/2024 11:43:22 What Is Your Level Of Alcohol Consumption? Occasional [email or web address] Information not available 08/21/2024 How Many Times Per Week Do You Consume Alcohol? Less Than 1 Time Per Week [email or web address] Information not available 08/21/2024 Are You Currently Employed? No [email or web address] Information not available 08/21/2024 When Did You Quit Smoking? 16+yearssincel astcigarette [email or web address] Information not available 08/21/2024 What Is Your Relationship Status? [email or web address] Information not available 08/21/2024 At What Age Did You Start Smoking Tobacco? 22 [email or web address] Information not available 08/21/2024 How Many Years Have You Smoked Tobacco? 30 [email or web address] Information not available 08/21/2024 Do You Or Have You Ever Used Any Other Forms Of Tobacco Or Nicotine? No [email or web address] Information not available 08/21/2024 Sex: Unknown Functional Status None recorded. Mental Status None recorded. Family History Relationship Description Onset Age of this Age Resolved Age Notes LastModified by Organization Details LastModified Time Mother Family history of malignant neoplasm [email or web address] Not available 2024 11:43:22 Medical History Condition Response BPH Y Hypertension Y Past Encounters Encounter ID Performer Location Encounter Start Date Encounter Closed Date Diagnosis/Indication Diagnosis SNOMED-CT Code Diagnosis ICD10 Code Diagnosis Note [id number] CARL HORNER MD [facility] [address] [place] [address] 08/21/2024 11:43:21 08/21/2024 12:20:51 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 Health Concerns Section Related Observation LastModified by Organization Detai ls LastModified Time None Recorded Concern Status LastModified by Organization Details LastModified Time None Recorded Advance Directives Directive None Recorded Payers Encounter Date Sequence Insurance Name Policy Number Policy Levin Covered Member ID Levin Member ID Guarantor Name 08/21/2024 1 [place] Fuad Portillo [id number] Fuad Portillo 08/21/2024 2 [facility] (MEDICARE SUPPLEMENT) Fuad Portillo [id number] Fuad Portillo Notes Date Note Type Note Provider Name and Address Organization Details Recorded Time 08/21/2024 text/html Patient is here for initial visit referred for an area of irritation right glans penis. This is not painful and does not itch. It comes and goes and scales. He has been applying Vaseline. He has no other urologic issues. He is still active and plays golf on a regular basis. CARL HORNER MD [facility] [place], [address], [facility] 08/21/2024 12:59:22
--- OUTSIDE RECORDS SUMMARY | 2024-10-08 23:28 | XMS_ITS | Continuity of Care Document ---
Author Organization [facility] Meg baeza [facility] Address [address] [place] [address] [address] [place] [address] Care Team Providers Care Cna Ltc Name Role Phone LEE MENENDEZ Referring Provider [phone] Assessment No assessment recorded. Plan of Treatment Reminders Order Date Submit Date Provider Last Modified By Organization Details Last Modified Time Details Appointments RECHECK 2024 11:30A M CARL HORNER MD Not available Not available Not available Lab urinalysi s panel, auto 2024 025 [email or web address] [facility], [address] [place] [address], [address], [place], [address], 08/21/2024 12:58:46 Referral None recorded. Procedures None recorded. Surgeries None recorded. Imaging None recorded. Medication Orders clotrimaz ole-betam ethasone 1 %-0.05 % topical cream 2024 025 [facility], [address] [facility] [address], [place], [place], [id number], 08/21/2024 14:45:34 Patient TargetsNo targets recorded. Patient InstructionsNo instructions recorded. Reason for Referral None Reported. Results Created Date Observation Date Name Description Value Unit Range Abnormal Flag Note LastModifiedBy Organization Detail LastModifiedTime 08/21/19 25 08/21/2024 urina lysis panel , auto Unknown Analyte Clean Catch Not Available [facility] [address], [place], [address], 08/21/2024 11:52:51 08/21/19 25 08/21/2024 urina lysis panel , auto Unknown Analyte Yellow Not Available [facility] [address], [place], [address], 08/21/2024 11:52:51 08/21/19 25 08/21/2024 urina lysis panel , auto Unknown Analyte Clear Not Available [facility] [address], [place], [address], 08/21/2024 11:52:51 08/21/19 25 08/21/2024 urina lysis panel , auto Unknown Analyte 1.005 Not Available [facility] [address], [place], [address], 08/21/2024 11:52:51 08/21/19 25 08/21/2024 urina lysis panel , auto Unknown Analyte 1.003 - 1.030 Not Available [facility] [address], [place], [address], 08/21/2024 11:52:51 08/21/19 25 08/21/2024 urina lysis panel , auto Unknown Analyte 6.5 Not Available [facility] [address], [place], [address], 08/21/2024 11:52:51 08/21/19 25 08/21/2024 urina lysis panel , auto Unknown Analyte 5.0 - 8.0 Not Available [facility] [address], [place], [address], 08/21/2024 11:52:51 08/21/19 25 08/21/2024 urina lysis panel , auto Unknown Analyte Negati ve Not Available [facility] [address], [place], [address], 08/21/2024 11:52:51 08/21/19 25 08/21/2024 urina lysis panel , auto Unknown Analyte Negati ve Not Available [facility] [address], [place], [address], 08/21/2024 11:52:51 08/21/19 25 08/21/2024 urina lysis panel , auto Unknown Analyte Negati ve Not Available [facility] [address], [place], [address], 08/21/2024 11:52:51 08/21/19 25 08/21/2024 urina lysis panel , auto Unknown Analyte Negati ve Not Available [facility] [address], [place], [address], 08/21/2024 11:52:51 08/21/19 25 08/21/2024 urina lysis panel , auto Unknown Analyte Negati ve Not Available [facility] [address], [place], [address], 08/21/2024 11:52:51 08/21/19 25 08/21/2024 urina lysis panel , auto Unknown Analyte Negati ve Not Available [facility] [address], [place], [address], 08/21/2024 11:52:51 08/21/19 25 08/21/2024 urina lysis panel , auto Unknown Analyte Normal Not Available [facility] [address], [place], [address], 08/21/2024 11:52:51 08/21/19 25 08/21/2024 urina lysis panel , auto Unknown Analyte Normal Not Available [facility] [address], [place], [address], 08/21/2024 11:52:51 08/21/19 25 08/21/2024 urina lysis panel , auto Unknown Analyte Negati ve Not Available [facility] [address], [place], [address], 08/21/2024 11:52:51 08/21/19 25 08/21/2024 urina lysis panel , auto Unknown Analyte Negati ve Not Available [facility] [address], [place], [address], 08/21/2024 11:52:51 08/21/19 25 08/21/2024 urina lysis panel , auto Unknown Analyte Normal Not Available [facility] [address], [place], [address], 08/21/2024 11:52:51 08/21/19 25 08/21/2024 urina lysis panel , auto Unknown Analyte Normal Not Available [facility] [address], [place], [address], 08/21/2024 11:52:51 08/21/19 25 08/21/2024 urina lysis panel , auto Unknown Analyte Negati ve Not Available [facility] [address], [place], [address], 08/21/2024 11:52:51 08/21/19 25 08/21/2024 urina lysis panel , auto Unknown Analyte Negati ve Not Available [facility] [address], [place], [address], 08/21/2024 11:52:51 08/21/19 25 08/21/2024 urina lysis panel , auto Unknown Analyte 50 Skip/uL Not Available [facility] [address], [place], [address], 08/21/2024 11:52:51 08/21/19 25 08/21/2024 urina lysis panel , auto Unknown Analyte Negati ve Not Available [facility] [address], [place], [address], 08/21/2024 11:52:51 Result Notes None recorded. Medical [...] Updated DateTime 08/21/2024 177.8 cm 26.8 kg/m2 98207.77 g Yamilex Schulte [facility] 08/21/2024 11:57:49 Social History Question Answer Notes [...] SNOMED-CT Code Diagnosis ICD10 Code Diagnosis Note [id number] CARL HORNER MD [facility] [address] [place] [address] 08/21/2024 11:43:21 08/21/2024 12:20:51 Plaque psoriasis 158257488 L40.0 Health Concerns Section Related Observation LastModified by Organization Detai ls LastModified Time None Recorded Concern Status LastModified by Organization Details LastModified Time None Recorded Payers Encounter Date Sequence Insurance Name Policy Number Policy Levin Covered Member ID Levin Member ID Guarantor Name 08/21/2024 1 [place] Fuad Portillo [id number] Fuad Portillo 08/21/2024 2 [employer] HE[employer]CARE OPTIONS (MEDICARE SUPPLEMENT) Fuad Portillo [id number] Fuad Portillo Notes Date Note Type Note [...] on a regular basis. CARL HORNER MD [address] [place], [address], [facility] 08/21/2024 12:59:22
--- OUTSIDE RECORDS SUMMARY | 2024-10-08 23:28 | XMS_ITS ---
Author Organization Unknown Vital Signs BpStanding BpSitting BpSupine Date Temperature HeartRate Weight Hei ght Spo2 Respiration Bmi HeadCircumference FieldCount TimeRecorded NeckCircumferen ce WaistCircumference Pulse 136/68 07/22 00:00 :00 98.6 64 193,0 5,11 98 26.9 2 7 10/04/2024 13:45:00 142/68 06/30 00:00 :00 98.6 67 187,0 5,11 97 26.0 8 7 10/04/2024 09:00:00 132/68 05/15 00:00 :00 98.2 69 193,0 5,11 98 26.9 2 7 10/04/2024 11:15:00 168/92 01/06 00:00 :00 98.0 61 188,0 5,11 97 26.2 2 7 10/04/2024 10:15:00
== END 2024-10-08 23:59 | disposition home or self-care (01) ==
LOC: SC.PAIN 13:29
PROVIDERS: PCP Family Medicine; Visit Provider Nurse Practitioner Family
DX: M54.50 Low back pain, unspecified (principal); M47.816 Spondylosis without myelopathy or radiculopathy, lumbar region; Z73.89 Other problems related to life management difficulty
CPT/HCPCS: 99212; G0463

== ENCOUNTER 2024-11-10 11:25 | Day surgery (SDC) | payer MEDICARE, SELFPAY ==
[2024-11-10 11:40] VITALS: BP 160/80; PULSE 64; RESP 16; TEMP 36.8; O2SAT 100; BMI 26.8
[2024-11-10] MEDS: BUPIVACAINE 0.25% 10ML INJ 25 MG IJ (11:53)
[2024-11-10 11:54] VITALS: BP 163/81; PULSE 60; RESP 18; O2SAT 98
[2024-11-10] MEDS: DEXAMETHASONE 10MG/ML 1ML VIAL 10 MG (11:54)
[2024-11-10] MEDS: LIDOCAINE 1% 5ML PF VIAL 5 ML (11:54)
[2024-11-10 11:55] VITALS: BP 163/81; PULSE 60; RESP 18; O2SAT 98
[2024-11-10 12:06] VITALS: BP 147/75; PULSE 60; RESP 16; O2SAT 98
--- NOTE | 2024-11-10 12:31 | EXP.PAIN.PRO ---
Procedure Date: 11/10/24 Time: 11:55 Anesthesiologist:: Servando Arita CRNA Complications:: None Pre-procedure Diagnosis:: Degenerative disc lumbar spine multilevels. Lumbar radiculopathy. Lumbar spondylosis. Multilevel lumbar facet arthropathy. Post-procedure Diagnosis:: Same. Indications for Procedure:: Patient is a pleasant 79-year-old male who comes our clinic today for ROUND ONE of lumbar medial branch blocks/facet injections of bilateral L4-5, L5-S1 level. Patient describes low lumbar back pain as constant, dull, aching. He reports having difficulty with lumbar flexion, extension, left right rotation. He rates his pain 7/10. Procedure Details:: Informed consent was obtained and the risk and benefits of the procedure was explained to the patient. Patient was taken to the procedure room where noninvasive monitors were placed, including noninvasive blood pressure cuff as well as pulse oximeter. The area over the lumbar spine was cleansed using chlorhexidine as a cleansing solution. I anesthetized the skin and subcutaneous tissues with 1% Lidocaine. I placed 22-gauge spinal needles into the facet joint/ medial branches of [L3-L4, L4-L5, and L5-S1] bilaterally. Needle placement was confirmed with fluoroscopy. After confirmation of needle placement, each site was injected with 1 mL of 1% lidocaine and 0.25 % Marcaine and 10 mg of Depo-Medrol. A total of 80 mg of depo medrol was used for bilateral medial branch blocks of [L3-L4, L4-L5, and L5-S1] bilaterally. Patient tolerated the procedure without difficulty. There were no complications. Plan and Disposition:: Patient was discharged without incident.
== END 2024-11-10 12:06 | disposition home or self-care (01) ==
LOC: SC.PAINP 11:26
PROVIDERS: PCP Family Medicine; Visit Provider Nurse Anesthetist, Certified Registered
DX: M47.816 Spondylosis without myelopathy or radiculopathy, lumbar region (principal); M51.369 Other intervertebral disc degeneration, lumbar region without mention of lumbar back pain or lower extremity pain
CPT/HCPCS: 64493; 64494; J1100

== ENCOUNTER 2024-12-02 15:16 | Outpatient (POV) | payer MEDICARE, SELFPAY ==
--- OUTSIDE RECORDS SUMMARY | 2024-12-02 15:21 | XMS_ITS | Data Portability ---
Author Organization [facility] KELLEY Flores [facility] CLOSED Address [address] [facility] [address] [place] [address] Care Team Providers Care Health Sciences Department Chair Name Role Phone LEE MENENDEZ Referring Provider [phone] Assessment No assessment recorded. Plan of Treatment Reminders Order Date Submit Date Provider Last Modified By Organization Details Last Modified Time Details Appointments None recorded. Lab urinalysis panel, auto [address] [facility], [address] [facility], [address], [place], [address], 5 12:58:46 Referral None recorded. Procedures None recorded. Surgeries None recorded. Imaging None recorded. Medication Orders clotrimazol e-betametha sone 1 %-0.05 % topical cream 2024 025 [facility], [address] [facility] [address], [place], [place], [id number], 5 14:45:34 Patient TargetsNo targets recorded. Patient InstructionsNo instructions recorded. Reason for Referral None Reported. Results Created Date Observation Date Name Description Value Unit Range Abnormal Flag Note LastModifiedBy Organization Detail LastModifiedTime 08/21/1908/21/2024 urina lysis panel , auto Unknown Analyte Clean Catch Not Available [facility] [address] [place] [address] [address], [place], [address], 08/21/2024 11:52:51 08/21/19 25 08/21/2024 urina lysis panel , auto Unknown Analyte Yellow Not Available [facility] [address], [place], [address], 08/21/2024 11:52:51 08/21/19 25 08/21/2024 urina lysis panel , auto Unknown Analyte Clear Not Available [facility] [address], [place], [address], 08/21/2024 11:52:51 08/21/19 25 08/21/2024 urina lysis panel , auto Unknown Analyte 1.005 Not Available [facility] [address], [place], [address], 08/21/2024 11:52:51 08/21/19 25 08/21/2024 urina lysis panel , auto Unknown Analyte 1.003 - 1.030 Not Available [facility] [address], [place], [address], 08/21/2024 11:52:51 08/21/19 25 08/21/2024 urina lysis panel , auto Unknown Analyte 6.5 Not Available [facility] [address], [place], [address], 08/21/2024 11:52:51 08/21/19 25 08/21/2024 urina lysis panel , auto Unknown Analyte 5.0 - 8.0 Not Available [facility] [address], [place], [address], 08/21/2024 11:52:51 08/21/19 25 08/21/2024 urina lysis panel , auto Unknown Analyte Negati ve Not Available [facility] [address], [place], [address], 08/21/2024 11:52:51 08/21/19 25 08/21/2024 urina lysis panel , auto Unknown Analyte Negati ve Not Available [facility] [address], [place], [address], 08/21/2024 11:52:51 08/21/19 25 08/21/2024 urina lysis panel , auto Unknown Analyte Negati ve Not Available [facility] [address], [place], [address], 08/21/2024 11:52:51 08/21/19 25 08/21/2024 urina lysis panel , auto Unknown Analyte Negati ve Not Available [facility] [address], [place], [address], 08/21/2024 11:52:51 08/21/19 25 08/21/2024 urina lysis panel , auto Unknown Analyte Negati ve Not Available [facility] [address], [place], [address], 08/21/2024 11:52:51 08/21/19 25 08/21/2024 urina lysis panel , auto Unknown Analyte Negati ve Not Available [facility] [address], [place], [address], 08/21/2024 11:52:51 08/21/19 25 08/21/2024 urina lysis panel , auto Unknown Analyte Normal Not Available [facility] [address], [place], [address], 08/21/2024 11:52:51 08/21/19 25 08/21/2024 urina lysis panel , auto Unknown Analyte Normal Not Available [facility] [address], [place], [address], 08/21/2024 11:52:51 08/21/19 25 08/21/2024 urina lysis panel , auto Unknown Analyte Negati ve Not Available [facility] [address], [place], [address], 08/21/2024 11:52:51 08/21/19 25 08/21/2024 urina lysis panel , auto Unknown Analyte Negati ve Not Available [facility] [address], [place], [address], 08/21/2024 11:52:51 08/21/19 25 08/21/2024 urina lysis panel , auto Unknown Analyte Normal Not Available [facility] [address], [place], [address], 08/21/2024 11:52:51 08/21/19 25 08/21/2024 urina lysis panel , auto Unknown Analyte Normal Not Available [facility] [address], [place], [address], 08/21/2024 11:52:51 08/21/19 25 08/21/2024 urina lysis panel , auto Unknown Analyte Negati ve Not Available [facility] [address], [place], [address], 08/21/2024 11:52:51 08/21/19 25 08/21/2024 urina lysis panel , auto Unknown Analyte Negati ve Not Available [facility] [address], [place], [address], 08/21/2024 11:52:51 08/21/19 25 08/21/2024 urina lysis panel , auto Unknown Analyte 50 Skip/uL Not Available [facility] [address], [place], [address], 08/21/2024 11:52:51 08/21/19 25 08/21/2024 urina lysis panel , auto Unknown Analyte Negati ve Not Available [facility] [address], [place], [address], 08/21/2024 11:52:51 Result Notes None recorded. Medical [...] Updated DateTime 08/21/2024 177.8 cm 26.8 kg/m2 36758.77 g Yamilex Schulte [facility] 08/21/2024 11:57:49 Social History Question Answer Notes LastModified by CallAppizat ion Details LastModified Time Tobacco Smoking Status Former Smoker Not Available [employer] 08/21/2024 11:43:22 When Did You Quit Smoking? 16+yearssinc elastcigaret te [email or web address] Information not available 08/21/2024 What Is Your Relationship Status? [email or web address] Information not available 08/21/2024 At What Age Did You Start Smoking Tobacco? 22 [email or web address] Information not available 08/21/2024 How Many Years Have You Smoked Tobacco? 30 [email or web address] Information not available 08/21/2024 Sex: Unknown Functional Status Question Answer Note LastModified by Organizat ion Details LastModified Time How many times per week do you consume alcohol? Less than 1 time per week [email or web address] Information not available 08/21/2024 Do you or have you ever used any other forms of tobacco or nicotine? No [email or web address] Information not available 08/21/2024 What is your level of alcohol consumption? Occasional [email or web address] Information not available 08/21/2024 Are you currently employed? No [email or web address] Information not available 08/21/2024 Mental Status None recorded. Family History Relationship Description Onset Age of this Age Resolved Age Notes LastModified by Organization Details LastModified Time Mother Family history of malignant neoplasm [email or web address] Not available 2024 11:43:22 Medical History Condition Response BPH Y Hypertension Y Past Encounters Encounter ID Performer Location Encounter Start Date Encounter Closed Date Diagnosis/Indication Diagnosis SNOMED-CT Code Diagnosis ICD10 Code Diagnosis Note [id number] CARL HORNER MD [facility] [address] [place] [address] 08/21/2024 11:43:21 08/21/2024 12:20:51 Plaque psoriasis [id number] L40.0 Health Concerns Section Related Observation LastModified by Organization Detai ls LastModified Time None Recorded Concern Status LastModified by Organization Details LastModified Time None Recorded Advance Directives Directive None Recorded Payers Insurance Date Sequence Insurance Name Policy Number Policy Levin Covered Member ID Levin Member ID Guarantor Name 08/20/2024 1 [place] Fuad Portillo [id number] Fuad Portillo 08/20/2024 2 AARP (MEDICARE SUPPLEMENT) Fuad Portillo [id number] Fuad Portillo Notes Date Note Type Note [...] on a regular basis. CARL HORNER MD [address] [place] [address], [address], [facility] 08/21/2024 12:59:22
[2024-12-02 15:33] VITALS: BP 134/72; PULSE 68; RESP 16; O2SAT 96; BMI 26.8
--- NOTE | 2024-12-02 15:49 | EXP.PAIN.SOA ---
[facility] Disclaimer: The information contained in this section may have been updated after the patient was seen, as this information can be updated by other users. Medical History BPH (benign prostatic hyperplasia) JUSTINE (obstructive sleep apnea) HTN (hypertension) HLD (hyperlipidemia) Surgical History Surgical history unknown Family History Other Unknown family medical history Social History Smoking Status: Never smoker alcohol intake: never counseling provided: none substance use type: denies use current occupational status: other Travel in the last 8 weeks?: None household members: spouse housing: apartment current occupational exposures/hazards: No caffeine: No PM Subjective & Objective Subjective Subjective:: Patient is a pleasant 79-year-old male who presents today for follow-up of his lumbar medial branch blocks that bilaterally L4-L5 and L5-S1 on 11/10/2024. Today he rates his pain as 3 out of 10. He does state following this injection he has had much more function and overall decreased pain. Patient states the movements of bending, twisting and lifting are definitely a lot easier. He does state that the pain was much better initially with the numbing medication rating about 75 to 80% relief. He states that now he would still state that it is providing about 50% relief. Patient is very active and still does golf, pickleball, yoga and continued at home stretching exercise at home. He is prescribed compounded cream from our office. His Hilario has been reviewed and is appropriate. Review of Systems: General: No recent weight changes, no fever, no sleep disturbances Respiratory: No cough, no shortness of air, no recurring pulmonary infections Cardiovascular/peripheral vascular: No chest pain, no palpitations, no edema, no shortness of breath Gastrointestinal: No new onset incontinence, normal bowel movements reported Genitourinary: No new onset incontinence Musculoskeletal: Low back pain Psychiatric: [Normal mood/affect] Neurological: [Denies weakness in extremities], [denies balance issues] Pain at rest (0-10 scale): 3 Objective Objective:: Physical Exam: General: Alert and oriented x3, no acute distress, pleasant and cooperative Lungs: Respirations even and unlabored, symmetrical chest expansion Eyes: PERRL Musculoskeletal: Flexion and extension of lumbar [spine] somewhat guarded secondary to pain, point tenderness along right SI joint Neurological: Speech clear, no gross sensory deficit Has patient had previous pain injection?: Yes Percent improvement in pain since last injection: 75 to 80% initially Conservative treatment options previously tried: Home exercise plan Length of treatment: Longer than 12 weeks Meds Home Medications and Allergies Home Medications ?Medication ?Instructions ?Recorded ?Confirmed ?Type aspirin 81 mg tablet,delayed 81 mg PO ONCE CAD 08/05/17 11/10/24 History release (Adult Low Dose Aspirin) simvastatin 40 mg tablet 40 mg PO DAILY Cholesterol 90 days 08/05/17 11/10/24 History tamsulosin 0.4 mg capsule 0.4 mg PO DAILY BPH 90 days ##90 08/05/17 11/10/24 History cetirizine 10 mg capsule 10 mg PO DAILY Allergy symptoms 09/09/18 11/10/24 History losartan 100 mg tablet 100 mg PO DAILY . 02/02/22 11/10/24 History gentamicin 0.3 % eye drops 2 drp ophthalmic (eye) Q4H 7 days 08/26/22 11/10/24 Rx #5 mL guaifenesin 400 mg tablet 400 mg PO QID PRN congestion #20 09/04/24 11/10/24 Rx tabs New Prescriptions to Start Prescriptions: Allergies Allergy/AdvReac Type Severity Reaction Status Date / Time lisinopril Allergy Mild Cough Verified 09/04/24 11:48 Assessment and Plan *Assessment and plan (1) Lumbar facet arthropathy: Status: Acute Category: Medical Code(s): M47.816 - Spondylosis without myelopathy or radiculopathy, lumbar region (2) Low back pain: Status: Acute Category: Medical Code(s): M54.50 - Low back pain, unspecified (3) Sacroiliitis: Status: Acute Category: Medical Code(s): M46.1 - Sacroiliitis, not elsewhere classified Plan Patient has had significant improvement following his first lumbar medial branch block and does not require any additional injection therapy at this time. Patient did have a little bit of point tenderness along his right SI joint however is still very manageable. Patient will return to clinic in 1 month for reevaluation of symptoms and plan of care. Patient has been instructed to contact the clinic with any concerns before the next appointment. Dr. Arenas has reviewed this note and agrees with this plan of care. This note was dictated using voice recognition software and make contain errors or omissions. All injections are used with Lidocaine, Bupivacaine and dexamethasone. Occasionally urine drug screen is needed to verify patient's compliance with our office pain contract. This is ordered based off specific treatments related to chronic pain with the potential to abuse certain medications.
== END 2024-12-02 23:59 | disposition home or self-care (01) ==
LOC: SC.PAIN 15:19
PROVIDERS: PCP Family Medicine; Visit Provider Nurse Practitioner Family
DX: M47.816 Spondylosis without myelopathy or radiculopathy, lumbar region (principal); M46.1 Sacroiliitis, not elsewhere classified
CPT/HCPCS: 99212; G0463

== ENCOUNTER 2024-12-12 13:43 | Emergency (ER) | payer MEDICARE, SELFPAY ==
[2024-12-12 13:50] VITALS: BP 160/76; PULSE 69; O2SAT 97
[2024-12-12 13:51] VITALS: BP 160/76; PULSE 71; RESP 20; TEMP 36.6; O2SAT 97; BMI 26.8
--- OUTSIDE RECORDS SUMMARY | 2024-12-12 13:57 | XMS_ITS | Data Portability ---
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 Plan of Treatment Reminders Order Date Submit Date Provider Last Modified By Organization Details Last Modified Time Details Appointments None recorded. Lab urinalysis panel, auto [address] [facility], [address], [address], [place], [address], 5 12:58:46 Referral None recorded. Procedures None recorded. Surgeries None recorded. Imaging None recorded. Medication Orders clotrimazol e-betametha sone 1 %-0.05 % topical cream 2024 025 [facility], [address], [place], [place], [id number], 5 14:45:34 Patient TargetsNo targets recorded. Patient InstructionsNo instructions recorded. Reason for Referral None Reported. Results Created Date Observation Date Name Description Value Unit Range Abnormal Flag Note LastModifiedBy Organization Detail LastModifiedTime 08/21/1908/21/2024 urina lysis panel , auto Unknown Analyte Clean Catch Not Available [facility] [address] [place] [address] [address], [place], [address], 08/21/2024 11:52:51 08/21/19 25 08/21/2024 urina lysis panel , auto Unknown Analyte Yellow Not Available [facility] [address], [place], [address], 08/21/2024 11:52:51 08/21/19 25 08/21/2024 urina lysis panel , auto Unknown Analyte Clear Not Available [facility] [address], [place], [address], 08/21/2024 11:52:51 08/21/19 25 08/21/2024 urina lysis panel , auto Unknown Analyte 1.005 Not Available [facility] [address], [place], [address], 08/21/2024 11:52:51 08/21/19 25 08/21/2024 urina lysis panel , auto Unknown Analyte 1.003 - 1.030 Not Available [facility] [address], [place], [address], 08/21/2024 11:52:51 08/21/19 25 08/21/2024 urina lysis panel , auto Unknown Analyte 6.5 Not Available [facility] [address], [place], [address], 08/21/2024 11:52:51 08/21/19 25 08/21/2024 urina lysis panel , auto Unknown Analyte 5.0 - 8.0 Not Available [facility] [address], [place], [address], 08/21/2024 11:52:51 08/21/19 25 08/21/2024 urina lysis panel , auto Unknown Analyte Negati ve Not Available [facility] [address], [place], [address], 08/21/2024 11:52:51 08/21/19 25 08/21/2024 urina lysis panel , auto Unknown Analyte Negati ve Not Available [facility] [address], [place], [address], 08/21/2024 11:52:51 08/21/19 25 08/21/2024 urina lysis panel , auto Unknown Analyte Negati ve Not Available [facility] [address], [place], [address], 08/21/2024 11:52:51 08/21/19 25 08/21/2024 urina lysis panel , auto Unknown Analyte Negati ve Not Available [facility] [address], [place], [address], 08/21/2024 11:52:51 08/21/19 25 08/21/2024 urina lysis panel , auto Unknown Analyte Negati ve Not Available [facility] [address], [place], [address], 08/21/2024 11:52:51 08/21/19 25 08/21/2024 urina lysis panel , auto Unknown Analyte Negati ve Not Available [facility] [address], [place], [address], 08/21/2024 11:52:51 08/21/19 25 08/21/2024 urina lysis panel , auto Unknown Analyte Normal Not Available [facility] [address], [place], [address], 08/21/2024 11:52:51 08/21/19 25 08/21/2024 urina lysis panel , auto Unknown Analyte Normal Not Available [facility] [address], [place], [address], 08/21/2024 11:52:51 08/21/19 25 08/21/2024 urina lysis panel , auto Unknown Analyte Negati ve Not Available [facility] [address], [place], [address], 08/21/2024 11:52:51 08/21/19 25 08/21/2024 urina lysis panel , auto Unknown Analyte Negati ve Not Available [facility] [address], [place], [address], 08/21/2024 11:52:51 08/21/19 25 08/21/2024 urina lysis panel , auto Unknown Analyte Normal Not Available [facility] [address], [place], [address], 08/21/2024 11:52:51 08/21/19 25 08/21/2024 urina lysis panel , auto Unknown Analyte Normal Not Available [facility] [address], [place], [address], 08/21/2024 11:52:51 08/21/19 25 08/21/2024 urina lysis panel , auto Unknown Analyte Negati ve Not Available [facility] [address], [place], [address], 08/21/2024 11:52:51 08/21/19 25 08/21/2024 urina lysis panel , auto Unknown Analyte Negati ve Not Available [facility] [address], [place], [address], 08/21/2024 11:52:51 08/21/19 25 08/21/2024 urina lysis panel , auto Unknown Analyte 50 Skip/uL Not Available [facility] [address], [place], [address], 08/21/2024 11:52:51 08/21/19 25 08/21/2024 urina lysis panel , auto Unknown Analyte Negati ve Not Available [facility] [address], [place], [address], 08/21/2024 11:52:51 Result Notes None recorded. 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 CARL HORNER MD [address] [place] [address], [phone], [facility] 08/21/2024 12:59:22
[2024-12-12 14:01] VITALS: BP 134/71; PULSE 67; O2SAT 97
--- NOTE | 2024-12-12 14:10 | HMH.EDGENADL ---
Discharge Plan Disposition Patient Disposition: Home, Self-Care Prescriptions Prescriptions: No Action losartan 100 mg tablet 100 mg PO DAILY simvastatin 40 mg tablet 40 mg PO DAILY 90 Days Patient Comments: tamsulosin 0.4 mg capsule,extended release 24hr 0.4 mg PO DAILY 90 Days Qty: 90 Patient Comments: aspirin [Adult Low Dose Aspirin] 81 mg tablet,delayed release (DR/EC) 81 mg PO ONCE cetirizine 10 mg capsule 10 mg PO DAILY guaifenesin 400 mg tablet 400 mg PO QID PRN (Reason: congestion) Qty: 20 0RF gentamicin 0.3 % drops 2 drp ophthalmic (eye) Q4H 7 Days Qty: 5 0RF Rx Instructions: left eye Referrals Follow up/Referrals: Serafin Ayers MD [Primary Care Provider, Medical] - See instructions Activity Restrictions/Add. Instructions Additional Instructions/Restrictions: Start taking Flonase [id number] to decrease the fluid behind your ears. Return to the emergency department for new or worsening symptoms or persistence of headache Clinical Impressions Clinical Impression: Serous otitis media Print Language Print Language: Bangladeshi Discharge ED Provider: Harriet Nichole General Adult HPI General Chief complaint: Headache Stated complaint: Shooting pain R side of head Time Seen by Provider: 12/12/24 14:10 Mode of Arrival: Ambulatory Source of Information: Patient and Spouse Description of Symptoms (Recalled from ER Triage Doc. by RN): pt is here today for sudden sharp shooting pain in head that is above his right ear, pt denies any n/v/fever and denies any vision or hearing changes as well as denies any dizziness. pt states its inermittenent in nature and he took 2 excedrin at home at 1230 that has not helped it History of Present Illness HPI narrative: Patient is a 79-year-old male with past medical history significant for hypertension and seasonal allergies presents to the emergency department with right sided ear pain episodic in nature but severe. Patient was golfing all day outside and was completely asymptomatic when he was done with golfing had 10-15 episodes of sharp shooting pain in his right ear without hearing changes vision changes nausea vomiting fever. Took 2 Excedrin at home and on arrival to the emergency department patient's symptoms are now resolved. Has never had similar symptoms in the past. Related Data Home Medications ?Medication ?Instructions ?Recorded ?Confirmed aspirin 81 mg tablet,delayed 81 mg PO ONCE CAD 08/05/17 12/02/24 release (Adult Low Dose Aspirin) simvastatin 40 mg tablet 40 mg PO DAILY Cholesterol 90 days 08/05/17 12/02/24 tamsulosin 0.4 mg capsule 0.4 mg PO DAILY BPH 90 days ##90 08/05/17 12/02/24 cetirizine 10 mg capsule 10 mg PO DAILY Allergy symptoms 09/09/18 12/02/24 losartan 100 mg tablet 100 mg PO DAILY . 02/02/22 12/02/24 Previous Rx's ?Medication ?Instructions ?Recorded gentamicin 0.3 % eye drops 2 drp ophthalmic (eye) Q4H 7 days 08/26/22 #5 mL guaifenesin 400 mg tablet 400 mg PO QID PRN congestion #20 09/04/24 tabs Allergies Allergy/AdvReac Type Severity Reaction Status Date / Time lisinopril Allergy Mild Cough Verified 09/04/24 11:48 [facility] Disclaimer: The information contained in this section may have been updated after the patient was seen, as this information can be updated by other users. Medical History BPH (benign prostatic hyperplasia) JUSTINE (obstructive sleep apnea) HTN (hypertension) HLD (hyperlipidemia) Surgical History Surgical history unknown Family History Other Unknown family medical history Social History Smoking Status: Never smoker alcohol intake: never counseling provided: none substance use type: denies use current occupational status: other Travel in the last 8 weeks?: None household members: spouse housing: apartment current occupational exposures/hazards: No caffeine: No Have you lived/traveled outside [place] in past 30 days?: No Contact w/someone who lives/traveled outside US past 30 days?: No Exposure to someone with infectious disease in past 14 days?: No Do you have a fever (greater than 100.4 F or 38 C)?: No Have you tested positive for COVID-19?: No Exposed to someone with COVID-19 in past 14 days?: No Do you have a sore throat?: No Do you have a cough?: No Do you have any weakness?: No Do you have any diarrhea?: No Are you experiencing any unusual bleeding?: No Do you have any muscle aches/pain?: Yes Do you have any abdominal pain?: No Are you experiencing loss of taste or smell?: No Other Medical History Have you received the Flu Vaccine for this season: Yes Have you received the Pneumonia Vaccine: Yes ROS Obtained: Yes All systems reviewed & no additional complaints except as documented Physical Exam General General appearance: alert and in no apparent distress Head Head exam: atraumatic, normocephalic and other (No trismus or malocclusion no tenderness on palpation of the temples) Eye Eye exam: Present PERRL and EOMI ENT ENT exam: Present other (effusion behind bilateral TMs, no foreign body) Neck Neck exam: Present full ROM; Absent tenderness Respiratory Respiratory exam: Present normal lung sounds bilaterally Cardiovascular Cardiovascular exam: Present regular rate and normal rhythm Abdominal Exam Abdominal exam: Present soft; Absent tenderness Neurological Exam Neurological exam: Present alert and oriented X3 Medical Decision Making Medical Records Screening: Per USPSTF and CDC recommendations, given the prevalence of disease in our region, it is our hospital?s policy to screen for HIV and viral Hepatitis for all patients aged 18 and over and those with ongoing risk factors. Hilario Inquiry Pt receiving controlled substance: No Vital Signs: 12/12/24 13:50 12/12/24 13:51 12/12/24 14:01 Temperature 97.9 F Temperature Source Oral Pulse Rate 69 67 Pulse Rate [Left Radial] 71 Respiratory Rate 20 Blood Pressure 160/76 H 134/71 Blood Pressure [Right Arm] 160/76 H Blood Pressure Mean Blood Pressure Mean [Right Arm] 104 02 Sat by Pulse Oximetry 97 97 97 Oxygen Delivery Method Room Air Room Air Room Air 12/12/24 14:30 Temperature Temperature Source Pulse Rate 60 Pulse Rate [Left Radial] Respiratory Rate 18 Blood Pressure 141/70 H Blood Pressure [Right Arm] Blood Pressure Mean 82 Blood Pressure Mean [Right Arm] 02 Sat by Pulse Oximetry 98 Oxygen Delivery Method Lab Data Lab Results 12/12/24 13:55: WBC 6.0, RBC 3.89 L, Hgb 12.0 L, Hct 35.6 L, MCV 91.5, MCH 30.8, MCHC 33.7, RDW 12.4, Plt Count 174, MPV 10.4, Neut % (Auto) 58.8, Lymph % (Auto) 28.3, Cedar % (Auto) 9.9 H, Eos % (Auto) 1.5, Baso % (Auto) 1.2, Neut # (Auto) 3.5, Lymph # (Auto) 1.7, Cedar # (Auto) 0.6, Eos # (Auto) 0.1, Baso # (Auto) 0.1, Sodium 137, Potassium 4.1, Chloride 106, Carbon Dioxide 27, Anion Gap 8.1, BUN 17, Creatinine 1.30 H, Estimated Creat Clear 56, Estimated GFR 53 L, Est GFR ( Amer) 65, Glucose 118 H, Calcium 10.4 H 12/12/24 13:55 12/12/24 13:55 Orders (Tests/Meds): ED MEDICATIONS Discontinued Medications Generic Name Dose Route Start Last Admin Trade Name Freq PRN Reason Stop Dose Admin Lactated Ringer's 500 mls @ 999 mls/hr 12/12/24 14:17 12/12/24 14:32 Lactated Ringer's 1000 Ml Bag IV 12/12/24 14:47 999 mls/hr .Q31M ONE Administration Ketorolac Tromethamine 15 mg 12/12/24 14:17 12/12/24 14:34 Ketorolac 30mg/Ml Vial IV 12/12/24 14:18 15 mg ONCE ONE Administration Ondansetron HCl 4 mg 12/12/24 14:17 12/12/24 14:33 Ondansetron 4mg/2ml Vial IV 12/12/24 14:18 4 mg ONCE ONE Administration ORDERS Category Date Time Status Basic Metabolic Panel Stat Lab 12/12/24 13:55 Completed Complete Blood Count Auto Diff Stat Lab 12/12/24 13:55 Completed Medical Decision Narrative: In summary, this 79-year-old male presents to the emergency department today with right-sided headache. On initial evaluation patient is hemodynamically stable saturating appropriately on room air afebrile no acute distress. Differential diagnosis includes but is not limited to giant cell arteritis, migraine, allergic rhinitis, serous or acute otitis media, ear foreign body, trigeminal neuralgia, occipital neuralgia. Patient is currently asymptomatic and episodes are very transient. Based on physical exam and history we will treat symptomatically exam is most consistent with serous otitis media. based on these concerns, I ordered CBC, RFP. Patient received lactated Ringer's and Zofran for treatment. Labs personally reviewed demonstrate minimal elevation in Cr. On reassessment patient has resolution in symptoms amenable to discharge with strict return precautions including persistence of pain. Recommended starting Flonase to decrease bilateral ear effusions that may be contributing to patient's intermittent headache. Critical Care Critical Care Time Critical Care Time: No
[2024-12-12 14:27] LABS: Chloride 106 mmol/L (98-107); Potassium 4.1 mmoL/L (3.5-5.1); Sodium 137 mmol/L (136-145)
[2024-12-12 14:30] VITALS: BP 141/70; PULSE 60; RESP 18; O2SAT 98
[2024-12-12 14:30] LABS: Anion Gap 8.1 mEq/L (5-15); Blood Urea Nitrogen 17 mg/dl (9-20); Calcium 10.4 mg/dl (8.4-10.2); Carbon Dioxide 27 mmol/L (22.0-30.0); Creatinine Clearance Estimated 56 mL/min (50-200); Estimated Glomerular Filt Rate 53 ml/min (>60); GFR (African American) 65 ML/MIN (>60); Glucose 118 mg/dl (74-100)
[2024-12-12] MEDS: LACTATED RINGERS 1000ML 500 ML 999 ML IV (14:32)
[2024-12-12] MEDS: ONDANSETRON 4MG/2ML VIAL 4 MG IV (14:33)
[2024-12-12 14:34] LABS: Basophils # 0.1 K/mm3 (0-0.2); Basophils % 1.2 % (0.1-2.0); Eosinophils # 0.1 Kmm3 (0.0-0.4); Eosinophils % 1.5 % (0.1-12.0); Hematocrit 35.6 % (42.0-52.0); Immature Granulocytes # 0.02 10^3uL; Immature Granulocytes % 0.3 %; Lymphocytes # 1.7 K/mm3 (0.7-4.5); Lymphocytes % 28.3 % (10-50); Mean Corpuscular HGB Conc 33.7 g/dL (31.8-35.4); Mean Corpuscular Hemoglobin 30.8 pg (27.0-31.2); Mean Corpuscular Volume 91.5 fl (80-94); Mean Platelet Volume 10.4 fl (7.4-10.4); Monocytes # 0.6 K/mm3 (0.1-1.0); Monocytes % 9.9 % (1.7-9.3); Neutrophils # 3.5 K/mm3 (1.8-7.8); Neutrophils % 58.8 % (37.0-80.0); Nucleated Red Blood Cells # 0 10^3/uL; Nucleated Red Blood Cells % 0 %; Platelet Count 174 K/mm3 (142-424); Red Blood Count 3.89 M/mm3 (4.60-6.20); Red Cell Distribution Width 12.4 % (11.5-17.5); Red Cell Distribution Width-SD 41.5 fL
[2024-12-12] MEDS: KETOROLAC 30MG/ML VIAL 15 MG IV (14:34)
[2024-12-12 15:00] VITALS: BP 150/73; PULSE 58; RESP 17; O2SAT 96
[2024-12-12 15:11] VITALS: BP 150/73; PULSE 61; RESP 16; TEMP 36.6; O2SAT 97
== END 2024-12-12 15:19 | disposition home or self-care (01) ==
PROVIDERS: Emergency Provider Student in an Organized Health Care Education/Training Program; PCP Family Medicine
DX: H65.01 Acute serous otitis media, right ear (principal)
CPT/HCPCS: 80048; 85025; 96374; 96375; 99284; J1885; J2405; J7120

== ENCOUNTER 2025-01-04 14:58 | Outpatient (POV) | payer MEDICARE, SELFPAY ==
--- NOTE | 2025-01-04 15:12 | EXP.PAIN.SOA ---
[facility] Disclaimer: The information contained in this section may have been updated after the patient was seen, as this information can be updated by other users. Medical History BPH (benign prostatic hyperplasia) JUSTINE (obstructive sleep apnea) HTN (hypertension) HLD (hyperlipidemia) Surgical History Surgical history unknown Family History Other Unknown family medical history Social History Smoking Status: Never smoker alcohol intake: never counseling provided: none substance use type: denies use current occupational status: other Travel in the last 8 weeks?: None household members: spouse housing: apartment current occupational exposures/hazards: No caffeine: No PM Subjective & Objective Subjective Subjective:: Patient is a pleasant 79-year-old male who presents today for follow-up. Today he does rated his pain a 5 out of 10 however does state with prolonged sitting or positioning the pain does get worse. Patient does typically have to get up and walk around in order to ease this down. He is stating that it is starting to interfere with his abilities to perform activities of daily living such as cooking and cleaning. Patient is very active and does continue to exercise on a daily basis. Patient does do golf, pickleball yoga and continued at home stretching and exercise. Patient is prescribed compounded cream from our office. His Hilario has been reviewed and is appropriate. Pain at rest (0-10 scale): 5 Objective Objective:: Physical Exam: General: Alert and oriented x3, no acute distress, pleasant and cooperative Lungs: Respirations even and unlabored, symmetrical chest expansion Eyes: PERRL Musculoskeletal: Flexion and extension of lumbar [spine] somewhat guarded secondary to pain, [antalgic gait noted] point tenderness along right SI with positive right Malik's, Ady's, Gaenslen's, compression and distraction exam Neurological: Speech clear, no gross sensory deficit Has patient had previous pain injection?: No Conservative treatment options previously tried: Home exercise plan Length of treatment: Longer than 12 weeks Meds Home Medications and Allergies Home Medications ?Medication ?Instructions ?Recorded ?Confirmed ?Type aspirin 81 mg tablet,delayed 81 mg PO ONCE CAD 08/05/17 12/02/24 History release (Adult Low Dose Aspirin) simvastatin 40 mg tablet 40 mg PO DAILY Cholesterol 90 days 08/05/17 12/02/24 History tamsulosin 0.4 mg capsule 0.4 mg PO DAILY BPH 90 days ##90 08/05/17 12/02/24 History cetirizine 10 mg capsule 10 mg PO DAILY Allergy symptoms 09/09/18 12/02/24 History losartan 100 mg tablet 100 mg PO DAILY . 02/02/22 12/02/24 History gentamicin 0.3 % eye drops 2 drp ophthalmic (eye) Q4H 7 days 08/26/22 12/02/24 Rx #5 mL guaifenesin 400 mg tablet 400 mg PO QID PRN congestion #20 09/04/24 12/02/24 Rx tabs New Prescriptions to Start Prescriptions: Allergies Allergy/AdvReac Type Severity Reaction Status Date / Time lisinopril Allergy Mild Cough Verified 09/04/24 11:48 Assessment and Plan *Assessment and plan (1) Sacroiliitis: Status: Acute Category: Medical Code(s): M46.1 - Sacroiliitis, not elsewhere classified Plan Patient is experiencing worsening pain along the low back and right hip. They did have limited range of motion of the lumbar spine along with point tenderness along right SI joint and a right bilateral Malik's, Ady's, Gaenslen's, compression and distraction exam. I did discuss with the patient that I do believe they would benefit from SI injection. Risk and benefits were discussed with the patient and they would like to proceed forward with this option. Patient has tried and failed conservative therapy. Patient has been actively doing conservative treatment including oral medication, heat and ice, topicals, at home exercising and stretching for longer than 12 weeks. Patient is having to adjust their activity based off the increased pain resulting in activity modification. I do believe the patient would benefit from SI injection. Patient has had chronic low back pain for longer than 6 months. This will be a therapeutic SI injection with less than 1.5 mL of solution to be injected. Patient's last SI injection was in August that did provide 80% relief and has lasted longer than 3 months. Patient will be scheduled for right SI injection under fluoroscopy. Patient has been instructed to contact the clinic with any concerns before the next appointment. Dr. Arenas has reviewed this note and agrees with this plan of care. This note was dictated using voice recognition software and make contain errors or omissions. All injections are used with Lidocaine or Bupivacaine and dexamethasone unless diagnostic in which no steroids were injected.
[2025-01-04 15:23] VITALS: BP 140/76; PULSE 70; RESP 18; O2SAT 95; BMI 27.2
== END 2025-01-04 23:59 | disposition home or self-care (01) ==
LOC: SC.PAIN 15:00
PROVIDERS: PCP Family Medicine; Visit Provider Nurse Practitioner Family
DX: M46.1 Sacroiliitis, not elsewhere classified (principal)
CPT/HCPCS: 99212; G0463

== ENCOUNTER 2025-02-09 08:53 | Day surgery (SDC) | payer MEDICARE, SELFPAY ==
[2025-02-09 09:04] VITALS: BP 121/61; PULSE 72; RESP 18; O2SAT 96; BMI 26.5
[2025-02-09] MEDS: BUPIVACAINE 0.25% 10ML INJ 25 MG IJ (09:15)
--- NOTE | 2025-02-09 09:16 | EXP.PAIN.PRO ---
Procedure Date: 02/09/25 Time: 09:10 Anesthesiologist:: Servando Arita CRNA Complications:: None Pre-procedure Diagnosis:: Right sacroiliitis Post-procedure Diagnosis:: Same Indications for Procedure:: Patient is a very pleasant 79-year-old male who comes our clinic today for right sacroiliac joint injection of cortisone local anesthetic. Patient describes right posterior hip pain as well as right lumbar back pain. Upon examination he has extreme point tenderness over the right sacroiliac joint. He rates his pain 7/10. Procedure Details:: Procedure: Right sacroliliac joint injection under fluoroscopy Informed consent was obtained and the risk and benefits of the procedure were explained to the patient.~ The patient was taken to the procedure room and noninvasive monitors were placed including noninvasive blood pressure cuff and pulse oximeter.~ The patient was placed prone on the procedure table.~ The~ right hip was cleansed using Betadine as a cleansing solution.~ C-arm fluorosocpy was used to view the right SI joint.~ The skin and subcutaneous tissues were anesthetized using Lidocaine 1.5% and a 25-gauge needle.~ After this, a 22-gauge spinal needle was inserted under fluoroscopic guidance into the inferior aspect of the right SI joint.~ Omnipaque dye was injected and a good spread was seen throughout the joint.~ After this, approximately 5 mL of bupivacaine 0.25% and dexamethasone 10 mg mg was incrementally injected into the sacroiliac joint.~ The patient tolerated the procedure well with no complications.~ The patient was observed in the Pain Clinic, then discharged home neurologically intact.~ Plan and Disposition:: Patient was discharged without incident.
[2025-02-09] MEDS: LIDOCAINE 1% 5ML PF VIAL 5 ML (09:22)
[2025-02-09 09:24] VITALS: BP 146/74; PULSE 70; RESP 18; O2SAT 96
[2025-02-09] MEDS: DEXAMETHASONE 10MG/ML 1ML VIAL 10 MG (09:24)
[2025-02-09 09:25] VITALS: BP 146/74; PULSE 70; RESP 18; O2SAT 96
[2025-02-09 09:30] VITALS: BP 124/72; PULSE 62; RESP 18; O2SAT 100
== END 2025-02-09 09:30 | disposition home or self-care (01) ==
PROVIDERS: PCP Family Medicine; Visit Provider Nurse Anesthetist, Certified Registered
DX: M46.1 Sacroiliitis, not elsewhere classified (principal); N40.0 Benign prostatic hyperplasia without lower urinary tract symptoms; E78.5 Hyperlipidemia, unspecified; I10 Essential (primary) hypertension; G47.33 Obstructive sleep apnea (adult) (pediatric); Z79.82 Long term (current) use of aspirin; Z79.899 Other long term (current) drug therapy
CPT/HCPCS: G0260; J0665; J1100; J2003